=== PATIENT | male | born 1960 | race Two or more races ===

== ENCOUNTER → 2025-01-17 | Outpatient (CLI) | payer MEDICARE, MEDICAID, SELFPAY ==
--- NOTE | 2025-01-17 13:51 | XR_ITS ---
Examination: CT chest, without intravenous contrast. Sagittal and coronal 2-D reconstructions. Exam date and time: January 17, 2025 1439 hours INDICATIONS: Diagnosis latent tuberculosis, pneumonia coughing one month CTDI:vol (mGy) 7.40 DLP: (mGycm) 262 Technique: Multiple 3.0 mm axial sections of the chest to been obtained. Bone and lung density settings are obtained. Sagittal and coronal 2-D reconstructions have been obtained. Low dose protocols were performed. One or more of the following dose reduction techniques were used; automated exposure control, adjustment of the mA and/or KV according to patient size, use of iterative reconstruction technique. Findings: No thoracic aortic aneurysm dilatation Heavy calcification left main left anterior descending left circumflex coronary arteries Mild enlargement cardiac contour No paratracheal tracheobronchial or bronchopulmonary adenopathy 3 mm pulmonary nodule left upper lobe image 108 2 mm pulmonary nodule right lower lobe image 163 Small calcified granuloma left lower lobe image 216 No pneumonia or pulmonary edema Atrophic kidneys IMPRESSION: No lobar pneumonia or pulmonary edema Noncalcified pulmonary nodules as above, recommend 6 month follow-up CT chest without contrast
== END | disposition home or self-care (01) ==
LOC: CDIM 13:27
PROVIDERS: PCP Family Medicine; Referring Provider Family Medicine; Visit Provider Family Medicine
DX: R91.8 Other nonspecific abnormal finding of lung field (principal); Z22.7 Latent tuberculosis; J98.4 Other disorders of lung
CPT/HCPCS: 71250